=== PATIENT | male | born 1950 | race African-American/Black ===

== ENCOUNTER 2021-09-01 11:19 | Emergency (ER) | payer OTHER, MEDICAID ==
[~2021-09-01] VITALS: Ht 172.7 cm; Wt 68.0 kg
--- NOTE | 2021-09-01 11:27 | NUR ---
BIBA TO BED
[2021-09-01 11:30] VITALS: BP 128/78
--- NOTE | 2021-09-01 11:30 | NUR ---
71 Y/O MALE BIBA C/O PAIN TO RIGHT FOREHEAD S/P FALL FROM WHEELCHAIR. PT WAS FOUND ON GROUND BEHIND [employer]. PT INITIALLY A/OX1 WITH BGL OF 56. EN ROUTE PT WAS GIVEN 100ML OF D10, PT IS NOW A/OX2. PT IS CONFUSED AND ONLY ABLE TO FOLLOW SIMPLE COMMANDS; SPEECH IS SLURRED WITH LEFT DROOP TO HIS MOUTH; PT IS ABLE TO RAISE EYEBROWS EQUALLY, UNABLE TO ASSESS ARM DRIFT DUE TO NOT FOLLOWING DIRECTION. PT HAS 1/2 INCH HEMATOMA TO RIGHT FOREHEAD. 20G IV LEFT FOREARM ESTABLISHED BY EMS. HX: HTN ALLERGIES: UNK MEDS: UNK
--- NOTE | 2021-09-01 12:08 | NUR ---
DR DE SANTIAGO AT BEDSIDE EXAMINING PT
--- NOTE | 2021-09-01 12:24 | NUR ---
PT REFUSING ANY INTERVENTIONS UNTIL HE EAT LUNCH. ER MD NOTIFTED
--- NOTE | 2021-09-01 12:26 | NUR ---
PT REQUESTING FOR SANDWICH, PER DR JONNATHAN ARNOLD TO GIVE. SANDWICH PROVIDED.
--- NOTE | 2021-09-01 12:35 | NUR ---
LAB AT BEDSIDE
[2021-09-01 12:49] LABS: BASOPHILS % (AUTO) 0.2 % (0.0-2.0); EOSINOPHILS # (AUTO) 0.1 K/uL (0-0.4); EOSINOPHILS % (AUTO) 0.7 % (0.0-4.0); HEMATOCRIT 35.4 % (36-52); HEMOGLOBIN 11.6 g/dL (12.0-18.0); LYMPHOCYTES % (AUTO) 9.2 % (20.5-51.1); MEAN CORPUSCULAR HEMOGLOBIN 27 pg (27-31); MEAN CORPUSCULAR HGB CONC 33 g/dL (33-37); MONOCYTES # (AUTO) 1.2 K/uL (0.8-1.0); MONOCYTES % (AUTO) 11.1 % (1.7-9.3); NEUTROPHILS # (AUTO) 8.6 K/uL (1.8-7.7); NEUTROPHILS % (AUTO) 78.8 % (42.2-75.2); PLATELET COUNT (AUTO) 629 K/uL (140-450); RED BLOOD CELL COUNT(AUTO) 4.26 MIL/uL (4.20-6.10); RED CELL DISTRIBUTION WIDTH 14.4 % (11.6-13.7); WHITE BLOOD COUNT (AUTO) 10.8 K/uL (4.8-10.8)
--- NOTE | 2021-09-01 12:49 | NUR ---
SAROJ COLLECTED AND WALKED TO LAB, GIVEN TO HIMANSHU
[2021-09-01 13:06] LABS: ALBUMIN 3.6 g/dL (3.4-5.0); ANION GAP 17.7 (8-16); CARBON DIOXIDE 22.4 mmol/L (21-32); CREATININE 0.7 mg/dL (0.6-1.3); POTASSIUM 4.1 mmol/L (3.5-5.1); TOTAL BILIRUBIN 0.4 mg/dL (0.0-1.0)
[2021-09-01 13:47] LABS: BILIRUBIN,URINE NEGATIVE (NEGATIVE); BLOOD, URINE TRACE-I (NEGATIVE); COLOR,URINE YELLOW (YELLOW); LEUKOCYTE ESTERASE ,URINE 2+ (NEGATIVE); NITRITE, URINE NEGATIVE (NEGATIVE); PH,URINE 5.5 (5.0-9.0); UGLUCOSE NEGATIVE (NEGATIVE)
[2021-09-01 13:51] LABS: APPEARANCE,URINE SLIGHTLY HAZY (CLEAR); RBC,URINE 0-5 /HPF (0-5)
[2021-09-01] MEDS ORDERED: CEPH-588 PO (13:54)
[2021-09-01] MEDS ORDERED: ACETAMINOPHEN 325 MG TAB PO ONE (13:55)
[2021-09-01 14:50] VITALS: BP 128/78
--- NOTE | 2021-09-01 14:50 | NUR ---
Patient discharged with v/s stable. Written and verbal after care instructions given and explained. Patient alert, oriented and verbalized understanding of instructions. Wheel Chair Assisted with to lobby. All questions addressed prior to discharge. ID band removed. Homeless meal packet provided. Patient advised to follow up with PMD. Rx of Keflex given. Patient educated on indication of medication including possible reaction and side effects. Opportunity to ask questions provided and answered.
== END 2021-09-01 14:50 | disposition home or self-care (01) ==
LOC: MED 11:19
DX: E16.2 Hypoglycemia, unspecified (principal); N39.0 Urinary tract infection, site not specified; I10 Essential (primary) hypertension
CPT/HCPCS: 36415; 70450; 72125; 80053; 81001; 85025; 87086; 99285